=== PATIENT | female | born 1990 | race Caucasian/White ===

== ENCOUNTER 2025-04-18 17:34 | Emergency (ER) | payer MEDICAID ==
[~2025-04-18] VITALS: Ht 149.9 cm; Wt 64.0 kg
[2025-04-18 17:47] VITALS: O2SAT 99
[2025-04-18] MEDS: LIDOCAINE HCL 1% 20ML VIAL INFIL ONE (19:45)
[2025-04-18] MEDS: TETANUS, DIPHTHERIA, PERTUSSIS VAC/PF 0.5ML (>10YR OLD) IM ONE (20:21)
[2025-04-18] MEDS ORDERED: BO1 TP (20:56)
[2025-04-18 21:09] VITALS: BP 113/67; PULSE 90; RESP 18; TEMP 37.2; O2SAT 99
== END 2025-04-18 21:09 | disposition home or self-care (01) ==
LOC: ER 17:34
DX: S61.011A Laceration without foreign body of right thumb without damage to nail, initial encounter (principal); W26.8XXA Contact with other sharp object(s), not elsewhere classified, initial encounter; Y93.89 Activity, other specified; Y92.89 Other specified places as the place of occurrence of the external cause; Y99.8 Other external cause status
CPT/HCPCS: 90715; 12001; 90471; 99283; J2003; Z7610

== ENCOUNTER 2025-05-05 14:53 | Emergency (ER) | payer MEDICAID ==
[~2025-05-05] VITALS: Ht 149.9 cm; Wt 67.0 kg
[~2025-05-05 14:53] MED LIST: BO1 TP
[2025-05-05 14:57] VITALS: TEMP 36.5; O2SAT 98
[2025-05-05 17:48] VITALS: BP 140/77; PULSE 62; RESP 12; O2SAT 99
== END 2025-05-05 17:56 | disposition home or self-care (01) ==
LOC: ER 14:53
DX: S61.011D Laceration without foreign body of right thumb without damage to nail, subsequent encounter (principal); X58.XXXD Exposure to other specified factors, subsequent encounter
CPT/HCPCS: 99282; Z7610